=== PATIENT | male | born 1995 | race Caucasian/White ===

== ENCOUNTER 2018-05-17 00:39 | Emergency (ER) | payer SELFPAY ==
[~2018-05-17] VITALS: Ht 170.2 cm; Wt 72.6 kg
[2018-05-17 00:52] VITALS: BP 150/90
[2018-05-17] MEDS ORDERED: MOBIC15 MG ORAL (01:12)
[2018-05-17] MEDS ORDERED: AMITRIPTYLINE H50 MG ORAL (01:12)
--- NOTE | 2018-05-17 01:13 | Emergency Room Report ---
History of Present Illness General Chief Complaint: Sore Throat Source: Patient Present Illness HPI Is a 22-year-old male with a history of chronic headache. He said he gets for years. Said get it every day. Presents with chief complaint of headache, sore throat. He saw his primary care in [place] prescribed him Imitrex. He said that really didn't help much. He also had a CAT scan done already. No fever chills but no nausea no vomiting. Symptom worsen tonight so she came in to make sure it is nothing else going on. Denies any other complaint. Pain is 7 out of 10. Allergies: Coded Allergies: PENICILLINS (Verified Allergy, Intermediate, 05/17/18) Patient History Past Medical History: see triage record, old chart reviewed Past Surgical History: none Pertinent Family History: none Social History: Denies: smoking Immunizations: other Reviewed Nursing Documentation: PMH: Agreed; PSxH: Agreed Nursing Documentation-PMH Past Medical History: No Stated History Review of Systems Eye: Denies: eye pain, blurred vision ENT: Denies: ear pain, nose congestion, throat swelling Respiratory: Denies: cough, shortness of breath Cardiovascular: Denies: chest pain, palpitations Gastrointestinal: Denies: abdominal pain, diarrhea, nausea, vomiting Musculoskeletal: Denies: back pain, joint pain Skin: Denies: rash Neurological: Reports: headache; Denies: numbness Endocrine: Denies: increased thirst, increased urine Hematologic/Lymphatic: Denies: easy bruising All Other Systems: negative except mentioned in HPI Physical Exam Vital Signs Date Time Temp Pulse Resp B/P (MAP) Pulse Ox O2 Delivery O2 Flow Rate FiO2 05/17/18 00:42 98.8 84 18 150/90 98 Room Air 98.8 vitals with high blood pressure. Repeat blood pressures normal Sp02 EP Interpretation: reviewed, normal General Appearance: well appearing, no apparent distress, alert Head: normocephalic, atraumatic Eyes: bilateral eye PERRL, bilateral eye EOMI ENT: hearing grossly normal, normal pharynx Neck: full range of motion, supple, no meningismus Respiratory: chest non-tender, lungs clear, normal breath sounds Cardiovascular #1: regular rate, rhythm, no murmur Gastrointestinal: normal bowel sounds, non tender, no mass, no organomegaly, no bruit, non-distended Musculoskeletal: back normal, gait/station normal, normal range of motion Psychiatric: anxious Skin: warm/dry Medical Decision Making Diagnostic Impression: Primary Impression: Headache Qualified Codes: R51 - Headache Additional Impression: Sore throat ER Course Patient with headache and sore throat and gum pain. Exam unremarkable. I suspect a psychiatric issue with anxiety and somatization. No evidence of meningitis, bleed or neoplastic process. We'll discharge home. Last Vital Signs Date Time Temp Pulse Resp B/P (MAP) Pulse Ox O2 Delivery O2 Flow Rate FiO2 05/17/18 00:59 98.8 05/17/18 00:42 84 18 150/90 98 Room Air Status: improved Disposition: HOME, SELF-CARE Condition: Stable Scripts Meloxicam* (MOBIC*) 15 Mg Tablet 15 MG ORAL DAILY, #30 TAB 0 Refills Prov: Marc Rosen MD 05/17/18 Amitriptyline Hcl (AMITRIPTYLINE HCL) 50 Mg Tablet 50 MG ORAL BEDTIME, #30 TAB Prov: Marc Rosen MD 05/17/18 Referrals: NOT CHOSEN IPA/,REFERRING (PCP) Additional Instructions: Follow-up with your doctor in 7 days as needed. Return if symptom worsen. Marc Rosen MD May 17, 2018 01:13
[2018-05-17 01:17] VITALS: BP 143/82
== END 2018-05-17 01:17 | disposition home or self-care (01) ==
LOC: EMR 00:53
DX: R51 Headache (principal); J02.9 Acute pharyngitis, unspecified; Z88.0 Allergy status to penicillin
CPT/HCPCS: 99283